=== PATIENT | male | born 2000 | race African-American/Black ===

== ENCOUNTER 2022-12-25 03:41 | Emergency (ER) | payer MEDICAID ==
[~2022-12-25] VITALS: Ht 170.2 cm; Wt 50.0 kg
[2022-12-25 03:45] VITALS: BP 129/72; PULSE 56; RESP 18; TEMP 98.5; O2SAT 100
[2022-12-25] MEDS ORDERED: SODIUM CHLORIDE 0.9% 1,000 ML IV ONE (04:15)
[2022-12-25] MEDS ORDERED: ONDANSETRON HCL 4MG/2ML INJ IV NR (04:15)
[2022-12-25] MEDS ORDERED: ONDA4TAB50 MT (04:17)
[2022-12-25] MEDS ORDERED: ACET-2708 MT (04:17)
== END 2022-12-25 08:25 | disposition home or self-care (01) ==
LOC: ER 03:41
DX: F11.90 Opioid use, unspecified, uncomplicated (principal)
CPT/HCPCS: 99283; 96374; 96361; J2405

== ENCOUNTER 2024-09-15 08:06 | Emergency (ER) | payer OTHER ==
[~2024-09-15] VITALS: Ht 172.7 cm; Wt 63.0 kg
[~2024-09-15 08:06] MED LIST: ACET-2708 MT; ONDA4TAB50 MT
[2024-09-15 08:08] VITALS: O2SAT 99
[2024-09-15] MEDS: ONDANSETRON HCL 4MG/2ML INJ IV STA (08:35)
[2024-09-15] MEDS: FAMOTIDINE 20MG/2ML VIAL IV ONE (08:35)
[2024-09-15] MEDS: SODIUM CHLORIDE 0.9% 1,000 ML IV ONE (08:35)
[2024-09-15] MEDS: KETOROLAC 30MG/ML VIAL IV STA (08:35)
[2024-09-15 08:36] LABS: HEMATOCRIT. 46.6 % (42.0-52.0); HEMOGLOBIN. 15.8 g/dL (14.0-18.0); MEAN CORPUSCULAR HGB CONC 33.8 g/dL (31.0-37.0); MEAN CORPUSCULAR VOLUME 82.8 fL (80.0-94.0); PLATELET 323 x1000/uL (130-400); RED BLOOD CELL COUNT 5.62 mill/uL (4.7-6.1); RED CELL DISTRIBUTION WIDTH 13.4 % (11.6-14.6); WHITE BLOOD COUNT 18.4 x1000/uL (4.5-11.0)
[2024-09-15] MEDS: CLONIDINE 0.1MG TABLET PO ONE (08:36)
[2024-09-15 08:40] LABS: DIFFERENTIAL COMMENT 1
[2024-09-15] MEDS: BUPRENORPHINE 8MG SL TABLET SL ONE (08:49)
[2024-09-15 08:53] LABS: CHLORIDE 103 mEq/L (98-107); POTASSIUM 3.1 mEq/L (3.5-5.1); SODIUM 140 mEq/L (136-145)
[2024-09-15 08:54] LABS: CARBON DIOXIDE 21 mEq/L (21-32)
[2024-09-15 08:55] LABS: CALCIUM 10.4 mg/dL (8.7-10.4)
[2024-09-15 08:59] LABS: CREATININE 0.9 mg/dL (0.6-1.3); GLUCOSE 156 mg/dL (70-105); UREA NITROGEN BLOOD 15 mg/dL (9-23)
[2024-09-15 09:00] LABS: ETHANOL BLOOD < 10 mg/dL (<10)
[2024-09-15 09:07] LABS: PLATELET ESTIMATE NORMAL
[2024-09-15] MEDS: POTASSIUM CHLORIDE 20MEQ TABLET SR PO SCH (10:36)
[2024-09-15] MEDS ORDERED: BUPR1FIL SL (11:16)
[2024-09-15 11:41] VITALS: BP 108/61; PULSE 66; RESP 17; TEMP 37; O2SAT 98
== END 2024-09-15 11:46 | disposition home or self-care (01) ==
LOC: ER 08:06
DX: F11.23 Opioid dependence with withdrawal (principal); Z79.899 Other long term (current) drug therapy
CPT/HCPCS: 80048; 80320; 85025; 36415; 96361; 96374; 96375; 99285; J3490; J1885; J2405; Z7610; J7030; G0480